=== PATIENT | female | born 1935 | race American Indian/Alaskan Native ===

== ENCOUNTER 2017-11-24 10:04 | Inpatient (IN) ==
--- NOTE | 2017-11-24 10:56 | Anesthesia Preoperative Report ---
Anesthesia Preoperative Record - Date and Time Date: 11/24/17 Preoperative Diagnosis: C scope Z80.0 Z86.010 Proposed Procedure: Colonoscopy NPO Since Date: 11/24/17 NPO Since Time: 00:00 Allergies/Adverse Reactions: Allergies Allergy/AdvReac Type Severity Reaction Status Date / Time metoclopramide [From Reglan] Allergy Verified 11/11/17 15:40 Penicillins Allergy Verified 08/10/12 11:52 Sulfa (Sulfonamide Allergy Verified 11/11/17 15:40 Antibiotics) metoclopramide HCl AdvReac Mild "IN A DAZE" Uncoded 08/11/12 07:26 - Vital Signs Vital Signs: Temperature 97.7 F 11/24/17 10:35 Pulse Rate 88 11/24/17 10:35 Respiratory Rate 12 11/24/17 10:35 Blood Pressure 144/68 H 11/24/17 10:35 Pulse Oximetry 97 11/24/17 10:35 Height and Weight: Height 4 ft 9 in Weight 44.7 kg Body Mass Index 21.3 - Medications Inpatient Medications: Current Medications Lactated Ringer's (Lactated Ringers) 1,000 mls @ 50 mls/hr IV .Q20H MELANIE Lidocaine HCl (Xylocaine-Mpf 1% Vial) 1 mg ID O ONE Stop: 11/24/17 12:26 Home Medications: Home Medications Medication Instructions Recorded Confirmed Type Naproxen sodium 220 mg tablet 220 mg PO Q12H 11/11/17 History aspirin 81 mg tablet,delayed 81 mg PO DAILY 11/11/17 History release cholecalciferol (vitamin D3) 400 400 unit PO DAILY 11/11/17 History unit capsule multivitamin,rv-[id number] 1 tab PO DAILY 11/11/17 History tablet niacin ER 500 mg capsule,extended 500 mg PO HS 11/11/17 History release nitrofurantoin macrocrystal 100 mg 100 mg PO HS 11/11/17 History capsule vitamin E (dl, acetate) 400 unit 400 unit PO DAILY 11/11/17 History capsule Is Patient on Beta Deisi?: No - Medical History Respiratory: DENIES: Asthma, Bronchitis, Chronic Obstructive Pulmonary Disease (COPD), Dyspnea, Orthopnea, Pulmonary Embolism, Pneumonia, Upper Respiratory Infection, Pulmonary Edema, Sleep Apnea, Tuberculosis, Other Cardiovascular: DENIES: Abnormal EKG, Angina, Arrhythmia, Congestive Heart Failure, Coronary Artery Disease, Heart Murmur, Hypertension, Hypotension, High Cholesterol, Myocardial Infarction, Rheumatic Fever, Valvular Heart Disease, Other Gastrointestional: DENIES: Obstructive Bowel, Hepatitis, Cirrhosis, Nausea or Vomiting Present, Gastroesophageal Reflux Disease, Gastrointestinal Bleeding, Hiatal Hernia, Ulcer , Morbid Obesity, Other Neuro/Musculoskeletal: Denies: HX.MS.OSAR, Back Problems, Cerebrovascular Accident, Depression, Headaches, Loss of Consciousness, Muscle Weakness, Neuromuscular Disorder, Paralysis, Paresthesia, Syncope, Seizures, Other Renal/Endocrine: DENIES: Diabetes Mellitus Type 1, Diabetes Mellitus Type 2, Renal Failure, Dialysis, Thyroid Disease, Weight Loss, Weight Gain, Other - Surgical History GI Surgery/Treatments: Reports: Colonoscopy, Other (DIVERTICULOSIS) Anesthesia Reactions: None Hx Family Anesthesia Reaction: No History of Motion Sickness: No - Social History Smoking Status: Never smoker Substance Use Type: does not use Alcohol Intake Frequency: does not drink - Pertinent Findings EKG: Sinus Rhythm, Sinus Bradycardia, First Degree AV Block - Physical Exam Respiratory Exam: Present: lungs clear, bilateral breath sounds equal Cardiovascular Exam: Present: regular rate and rhythm, no murmur - Airway Assessment Mallampati Score: II TMD: 3 Fingerbreadths Neck Extension: fair Overall Assessment: no airway concerns - ASA ASA Score: 2 - Plan Anesthesia: General TIVA - Discussion Discussion: Discussed risks/options/alternatives of anesthesia and questions answered. Patient consents. Nursing pain assessment noted. Present for Discussion: family member Attestation Statement: Prior to the delivery of any anesthetic medication, I examined the patient, developed the plan, obtained the patient's consent and discussed the risk and benefits of the procedure with the patient/guardian. - Additional Information Seen by Anesthesia: Yes
[2017-11-24 12:19] VITALS: BMI 20.9
[2017-11-24] MEDS ORDERED: LIDOCAINE 1% (10mg/ml) 2mL INJ PF SDV ID ONE (12:25)
[2017-11-24] MEDS ORDERED: LR 1,000 ML IV SCH (12:30)
--- NOTE | 2017-11-24 13:11 | Cardiology History & Physical ---
History of Present Illness Chief complaint: bradycardia HPI: Sakina is a 82 year old female with very little health history, a patient of Dr. Sharp, and was scheduled for elective, nonemergent colonoscopy today in the care of Dr. Martinez. She was found to be bradycardic on telemetry and EKG obtained showed sinus bradycardia with 1st degree AV block, HR 38. She was asymptomatic while laying in the pre-op area. I examined her in pre-op where she admits to at times needing to grab ahold of something to prevent passing out or loss of balance but denies syncope. She reports family history of heart problems, her mother's began in her 30s, her sister needing a PPM. Review of Systems - Constitutional Constitutional: Absent: chills, fatigue, fever(s) - EENMT Eyes: Absent: change in vision Balance: Absent: vertigo Mouth/Throat: Absent: sore throat - Cardiovascular Cardiovascular: Absent: chest pain, palpitations, syncope - Respiratory Respiratory: Absent: cough, dyspnea on exertion - Gastrointestinal Gastrointestinal: Absent: diarrhea, nausea, vomiting - Genitourinary Genitourinary: Absent: dysuria - Integumentary/Breasts Integumentary: Absent: rash - Neurological Neurological: Present: dizziness - Endocrine Endocrine: Absent: palpitations PFS Patient Stated Medical History Cerebrovascular Accident No Paralysis No Seizures No Syncope No Angina No Cardiac Arrhythmia No Congestive Heart Failure No Coronary Artery Disease No Heart Murmur No Hypertension No Hypotension No Myocardial Infarction No Rheumatic Fever No Valvular Heart Disease No Other Cardiology No Asthma No Bronchitis No Chronic Obstructive Pulmonary No Disease (COPD) Pneumonia No Pulmonary Edema No Pulmonary Embolism No Sleep Apnea No Tuberculosis No Other Respiratory No Diabetes Mellitus Type 1 No Diabetes Mellitus Type 2 No Cirrhosis No Gastroesophageal Reflux No Disease Gastrointestinal Bleeding No Hepatitis No Hiatal Hernia No Obstructive Bowel No Ulcer No Other GI No Osteoarthritis No Other Musculoskeletal No Depression No Clinic Medical History (Last Updated 11/11/17 @ 15:36 by JEFFREY Valle) No significant active problems (Acute Medical) Surgical History: 1. Colonoscopy on 07/21/2007. The patient did have a tubulovillous adenoma removed at a colonoscopy procedure at some time prior to 2011. 2. Colonoscopy on 08/11/[address] Guillaume at [facility] [place], [place]. Postoperative diagnoses were history of tubulovillous adenoma and mild diverticulosis of the left colon. Family History: Family History (Last Updated 11/11/17 @ 15:37 by Lulú Sanford Clayton) Father Heart attack Brother Heart attack Mother Heart attack Sister Breast cancer - Social History Smoking status: Never smoker Substance use type: does not use Alcohol intake frequency: does not drink Housing: apartment Household members: none Current occupational status: retired Current residence: Apartment/Private Home Medications Home Medications Medication Instructions Recorded Confirmed Type Naproxen sodium 220 mg tablet 220 mg PO Q12H PRN 11/11/17 11/24/17 History aspirin 81 mg tablet,delayed 81 mg PO DAILY 11/11/17 11/24/17 History release multivitamin,wk-uylf-[id number] 1 tab PO DAILY 11/11/17 11/24/17 History tablet niacin ER 500 mg capsule,extended 500 mg PO DAILY 11/11/17 11/24/17 History release vitamin E (dl, acetate) 400 unit 400 unit PO DAILY 11/11/17 11/24/17 History capsule Minocycline [Minocin] 100 mg PO BID #13 cap 11/27/17 Rx Allergies Allergy/AdvReac Type Severity Reaction Status Date / Time metoclopramide [From Reglan] Allergy Verified 11/24/17 13:10 Penicillins Allergy Verified 11/24/17 13:10 Sulfa (Sulfonamide Allergy Verified 11/24/17 13:10 Antibiotics) metoclopramide HCl AdvReac Mild "IN A DAZE" Uncoded 11/24/17 13:10 Exam Vital signs: Temperature 97.0 F 11/24/17 12:15 Pulse Rate 40 L 11/24/17 12:15 Respiratory Rate 14 11/24/17 12:15 Blood Pressure 166/61 H 11/24/17 12:15 Pulse Oximetry 95 11/24/17 12:15 - Constitutional no acute distress, thin, cooperative - Routine HEENT Exam Head: Present: normocephalic ENT: Present: mucous membranes dry - Routine Neck Exam Absent: JVD, carotid bruit - Routine Chest/Breast/Axilla Exam Chest wall: Absent: tenderness - Routine Respiratory Exam Absent: CTA bilaterally, rales, wheezes - Routine Cardiovascular Exam Present: bradycardia - Routine Abdominal Exam Present: soft, normoactive bowel sounds - Routine Extremities Exam Present: no edema - Routine Skin Exam Present: intact, dry, warm - Routine Neurological Exam Present: alert, oriented X3 - Routine Psychiatric Exam Present: normal affect, normal thought process Results 11/27/17 05:08 11/27/17 05:08 Cardiac Enzymes 11/24/17 Range/Units 11:47 AST 26 (14-36) U/L CBC 11/24/17 Range/Units 11:47 WBC 5.3 (4.5-11.0) T/MM3 RBC 4.33 (4.00-5.20) M/MM3 Hgb 13.2 (12-16) GM/DL Hct 39.1 (36-46) % Plt Count 313 (130-400) T/MM3 Neut # (Auto) 3.5 (1.8-7.7) T/MM3 Lymph # (Auto) 1.1 (1-4.8) T/MM3 [place] # (Auto) 0.5 (0-0.8) T/MM3 Eos # (Auto) 0.1 (0-0.5) T/MM3 Baso # (Auto) 0.0 (0-0.2) T/MM3 Comprehensive Metabolic Panel 11/24/17 Range/Units 11:47 Sodium 144 (134-144) MEQ/L Potassium 4.0 (3.6-5) MEQ/L Chloride 107 (98-107) MEQ/L Carbon Dioxide 24 (22-30) MEQ/L BUN 15.0 (7-17) MG/DL Creatinine 0.9 (0.7-1.2) MG/DL Glucose 91 (65-110) MG/DL Calcium 9.1 (8.4-10.2) MG/DL AST 26 (14-36) U/L ALT 31 (9-52) U/L Alkaline Phosphatase 78 (38-126) U/L Total Protein 6.7 (6.3-8.2) G/DL Albumin 4.2 (3.5-5.0) G/DL Intake and Output 11/23/17 11/24/17 11/24/17 22:59 06:59 14:59 Other: Weight 97 lb 0.054 oz Patient Weight 11/25/17 06:59 Weight 97 lb 0.054 oz - Imaging and Cardiology Imaging & Cardiology Narrative: Date of Exam: 11/24/17 Type of Exam(s): US echo doppler complete DATE OF PROCEDURE November 24, 2017 This is a two-dimensional echo with spectral Doppler, color-flow and M-mode. It was obtained in a patient with bradycardia. Left atrium is dilated. Left ventricular end-diastolic dimension is normal. Left ventricle wall thickness is increased. LV systolic function is normal with ejection fraction of about 62%. Right atrium is normal. Right ventricle is normal. Aortic root dimension is normal. Mitral valve is morphologically normal with moderate mitral regurgitation. Aortic valve is a trileaflet structure with no stenosis and trace of aortic insufficiency. Tricuspid valve shows [id number]-[id number] tricuspid regurgitation with moderate pulmonary hypertension with estimated pulmonary artery systolic pressure of 45. Pulmonary valve shows no pulmonary insufficiency. There is no pericardial effusion. IMPRESSION 1. Left atrial dilation. 2. Left ventricular hypertrophy. 3. Normal LV systolic function with ejection fraction of 62%. 4. Moderate mitral regurgitation. 5. Wtlf-dw-tpzsarve tricuspid regurgitation with moderate pulmonary hypertension with estimated pulmonary artery systolic pressure of 45. 6. Trace of aortic insufficiency. 11/25/17 10:18 11/25/17 10:19 Date of Exam: 11/24/17 Ordering Provider: Karyna Correa APRN Type of Exam(s): XR chest 1V Reason for Exam(s): bradycardia Indication: bradycardia PROCEDURE: XR chest 1V: Encounter: Initial Comparison: None Findings: Lungs are clear. No pleural effusion or pneumothorax. Heart size and mediastinal contours are within normal limits. Pulmonary vascularity is normal. Impression: No acute cardiopulmonary disease. EKG interpretations - Dysrhythmias Sinus rhythms and dysrhythmias: sinus bradycardia (< 50 bpm) - Blocks, axis, hypertrophy, ST abn AV and intraventricular conduction: 2 to 1 AV block Hospital Course This is a general summary of the patient's hospital course. For more details refer to the complete medical record. Time spent with patient: 25 - 35 minutes Resuscitation Status: Full Code Assessment and Plan - Attestation Attestation Narrative: 12/03/17 12:46 Recommendation After examining the patient I agree with the above assessment. I am involved in the formulation of the patient's plan of care. - Assessment and Plan (1) Sinus bradycardia Status: Acute Denies syncope, reports some balance disturbance requiring her to grab ahold of furniture - check TSh and Mag - Monitor telemetry overnight - 2D echo for eval of possible valve disease, LV dysfunction - Possible PPM tomorrow - Assessment and Plan Denies syncope, reports some balance disturbance requiring her to grab ahold of furniture - check TSh and Mag - Monitor telemetry overnight - 2D echo for eval of possible valve disease, LV dysfunction - Possible PPM tomorrow
--- NOTE | 2017-11-24 13:50 | XRay Report ---
Indication: bradycardia PROCEDURE: XR chest 1V: Encounter: Initial Comparison: None Findings: Lungs are clear. No pleural effusion or pneumothorax. Heart size and mediastinal contours are within normal limits. Pulmonary vascularity is normal. Impression: No acute cardiopulmonary disease. .
[2017-11-24] MEDS ORDERED: NAPROXEN 220 MG TABLET PO PRN (17:47)
[2017-11-24] MEDS: ENOXAPARIN 40 MG/0.4 ML INJECTION SQ SCH (19:32)
[2017-11-24] MEDS: SALINE FLUSH 10ml SYRINGE IV PRN (21:34)
[2017-11-24] MEDS: NIACIN ER 500 MG TABLET PO SCH (21:34)
--- NOTE | 2017-11-25 08:24 | Echocardiogram ---
DATE OF PROCEDURE November 24, 2017 This is a two-dimensional echo with spectral Doppler, color-flow and M-mode. It was obtained in a patient with bradycardia. Left atrium is dilated. Left ventricular end-diastolic dimension is normal. Left ventricle wall thickness is increased. LV systolic function is normal with ejection fraction of about 62%. Right atrium is normal. Right ventricle is normal. Aortic root dimension is normal. Mitral valve is morphologically normal with moderate mitral regurgitation. Aortic valve is a trileaflet structure with no stenosis and trace of aortic insufficiency. Tricuspid valve shows dswe-uh-[id number] tricuspid regurgitation with moderate pulmonary hypertension with estimated pulmonary artery systolic pressure of 45. Pulmonary valve shows no pulmonary insufficiency. There is no pericardial effusion. IMPRESSION 1. Left atrial dilation. 2. Left ventricular hypertrophy. 3. Normal LV systolic function with ejection fraction of 62%. 4. Moderate mitral regurgitation. 5. Odjn-pp-jklctnss tricuspid regurgitation with moderate pulmonary hypertension with estimated pulmonary artery systolic pressure of 45. 6. Trace of aortic insufficiency. MTDD
[2017-11-25] MEDS ORDERED: MULTIVIT TX WITH IRON MINERALS PO SCH (09:00)
[2017-11-25] MEDS ORDERED: NIACIN 500 MG PO SCH (09:00)
[2017-11-25] MEDS: ENOXAPARIN 40 MG/0.4 ML INJECTION SQ SCH (09:57)
[2017-11-25] MEDS: ASPIRIN *EC* 81 MG TABLET PO SCH (09:57)
[2017-11-25] MEDS: MULTI-VITAMIN + MINERAL TABLET PO SCH (09:58)
[2017-11-25] MEDS: VITAMIN E 400 UNIT CAPSULE PO SCH (09:58)
--- NOTE | 2017-11-25 18:20 | Cardiology Progress Note ---
<Karyna Correa M - Last Filed: 11/25/17 18:17> Exam Vital signs: Temperature 96.9 F 11/25/17 16:00 Pulse Rate 65 11/25/17 16:00 Respiratory Rate 14 11/25/17 16:00 Blood Pressure 135/61 11/25/17 16:00 Pulse Oximetry 96 11/25/17 16:00 Inpatient Medications: Generic Name Dose Route Start Last Admin Trade Name Scottieq PRN Reason Stop Dose Admin Aspirin 81 mg 11/25/17 09:00 11/25/17 09:57 Ecotrin PO 81 mg DAILY MELANIE Administration Enoxaparin Sodium 40 mg 11/24/17 18:00 11/25/17 09:57 Lovenox SQ 40 mg DAILY MELANIE Administration Multivitamins/Minerals 1 tab 11/25/17 09:00 11/25/17 09:58 Therapeutic - M PO 1 tab DAILY MELANIE Administration Naproxen 220 mg 11/24/17 17:47 Aleve PO Q12H PRN Pain Niacin 500 mg 11/24/17 21:00 11/24/17 21:34 Niaspan PO 500 mg HS [facility] Administration Sodium Chloride 10 - 80 ml 11/24/17 11:36 11/24/17 21:34 Iv Flush IV 10 ml PRN PRN Administration Flushing Vitamin E 400 unit 11/25/17 09:00 11/25/17 09:58 Vitamin E PO 400 unit DAILY MELANIE Administration Discontinued Medications Generic Name Dose Route Start Last Admin Trade Name Laquita PRN Reason Stop Dose Admin Lactated Ringer's 1,000 mls @ 50 mls/hr 11/24/17 12:30 11/24/17 23:15 Lactated Ringers IV Not Given .Q20H [facility] Lidocaine HCl 1 mg 11/24/17 12:25 11/24/17 23:14 Xylocaine-Mpf 1% Vial ID 11/24/17 12:26 Not Given O ONE Non-Formulary Medication 1 tab 11/25/17 09:00 Multivit,Tx With Iron,Minerals [Thera-M] PO DAILY [facility] Non-Formulary Medication 500 mg 11/25/17 09:00 Niacin Er PO DAILY MELANIE - Constitutional no acute distress, well nourished, thin, cooperative - Routine HEENT Exam Head: Present: normocephalic ENT: Present: mucous membranes moist - Routine Neck Exam Absent: JVD, carotid bruit - Routine Chest/Breast/Axilla Exam Chest wall: Absent: tenderness - Routine Respiratory Exam Present: CTA bilaterally. Absent: rales, wheezes - Routine Cardiovascular Exam Present: no murmur, bradycardia - Routine Abdominal Exam Present: soft, normoactive bowel sounds - Routine Extremities Exam Present: no edema - Routine Skin Exam Present: intact, dry, warm - Routine Neurological Exam Present: alert, oriented X3 - Routine Psychiatric Exam Present: normal affect - Additional findings Additional findings: Aspirin (Ecotrin) 81 mg PO DAILY [facility] Last Admin: 11/25/17 09:57 Dose: 81 mg Enoxaparin Sodium (Lovenox) 40 mg SQ DAILY [facility] Last Admin: 11/25/17 09:57 Dose: 40 mg Multivitamins/Minerals (Therapeutic - M) 1 tab PO DAILY [facility] Last Admin: 11/25/17 09:58 Dose: 1 tab Naproxen (Aleve) 220 mg PO Q12H PRN PRN Reason: Pain Niacin (Niaspan) 500 mg PO HS [facility] Last Admin: 11/24/17 21:34 Dose: 500 mg Sodium Chloride (Iv Flush) 10 - 80 ml IV PRN PRN PRN Reason: Flushing Last Admin: 11/24/17 21:34 Dose: 10 ml Vitamin E (Vitamin E) 400 unit PO DAILY [facility] Last Admin: 11/25/17 09:58 Dose: 400 unit Results 11/25/17 05:11 11/25/17 05:11 CBC 11/25/17 Range/Units 05:11 WBC 4.6 (4.5-11.0) T/MM3 RBC 4.08 (4.00-5.20) M/MM3 Hgb 12.3 (12-16) GM/DL Hct 37.2 (36-46) % Plt Count 296 (130-400) T/MM3 Comprehensive Metabolic Panel 11/25/17 Range/Units 05:11 Sodium 141 (134-144) MEQ/L Potassium 3.8 (3.6-5) MEQ/L Chloride 108 H (98-107) MEQ/L Carbon Dioxide 24 (22-30) MEQ/L BUN 14.0 (7-17) MG/DL Creatinine 0.8 (0.7-1.2) MG/DL Glucose 70 (65-110) MG/DL Calcium 8.6 (8.4-10.2) MG/DL Intake and Output 11/25/17 11/25/17 11/25/17 06:59 14:59 22:59 Intake Total 240 / 240 Balance 240 / 240 Intake: Oral 240 / 240 Other: Weight 96 lb 8.999 oz Patient Weight 11/26/17 06:59 Weight 96 lb 8.999 oz - EKG Interpretation EKG shows: bradycardia Assessment and Plan - Assessment and Plan (1) Sinus bradycardia Status: Acute - Assessment and Plan 11/24/17 Bradycardia: Denies syncope, reports some balance disturbance requiring her to grab [employer] - check TSh and Mag - Monitor telemetry overnight - 2D echo for eval of possible valve disease, LV dysfunction - Possible PPM tomorrow 11/25/17 2:1 AV Block on Telemetry - Shared findings with the patient and her sister, discussed the risks and benefits of PPM insertion; she agrees to think about PPM placement. - NPO after midnight - Consent for dual chamber PPM around [id number] tomorrow Hospital Course Summary Disclaimer: The visit summary below is not to be considered part of the above Progress Note. <Lowell Adams - Last Filed: 12/03/17 12:47> Exam Vital signs: Temperature 97 F 11/27/17 15:30 Pulse Rate 65 11/27/17 15:30 Respiratory Rate 14 11/27/17 15:30 Blood Pressure 133/72 11/27/17 15:30 Pulse Oximetry 97 11/27/17 08:00 Inpatient Medications: Discontinued Medications Generic Name Dose Route Start Last Admin Trade Name Scottieq PRN Reason Stop Dose Admin Acetaminophen 650 mg 11/26/17 14:32 11/27/17 13:28 Tylenol PO 650 mg Q4H MELANIE Administration Acetaminophen/Codeine Phosphate 1 - 2 tab 11/26/17 14:32 Tylenol With Codeine #3 (300/30) PO Q4H PRN Pain Al Hydroxide/Mg Hydroxide 30 ml 11/26/17 14:32 Maalox Plus PO Q3H PRN Indigestion Aspirin 81 mg 11/25/17 09:00 11/27/17 09:43 Ecotrin PO 81 mg DAILY MELANIE Administration Enoxaparin Sodium 40 mg 11/24/17 18:00 11/27/17 09:42 Lovenox SQ 40 mg DAILY MELANIE Administration Lactated Ringer's 1,000 mls @ 50 mls/hr 11/24/17 12:30 11/24/17 23:15 Lactated Ringers IV Not Given .Q20H MELANIE Vancomycin HCl 750 mg/ Sodium 250 mls @ 250 mls/hr 11/26/17 10:45 11/26/17 14 :35 Chloride IV 11/26/17 11:44 Not Given PREOP ONE Vancomycin HCl 750 mg/ Sodium 250 mls @ 250 mls/hr 11/27/17 02:00 11/27/17 04 :03 Chloride IV 11/27/17 02:59 Infused O ONE Infusion Lidocaine HCl 1 mg 11/24/17 12:25 11/24/17 23:14 Xylocaine-Mpf 1% Vial ID 11/24/17 12:26 Not Given O ONE Minocycline HCl 100 mg 11/27/17 09:00 11/27/17 09:43 Minocin PO 12/04/17 08:59 100 mg BID MELANIE Administration Multivitamins/Minerals 1 tab 11/25/17 09:00 11/27/17 09:43 Therapeutic - M PO 1 tab DAILY MELANIE Administration Naproxen 220 mg 11/24/17 17:47 11/25/17 21:13 Aleve PO 220 mg Q12H PRN Administration Pain Niacin 500 mg 11/24/17 21:00 11/26/17 21:08 Niaspan PO 500 mg HS MELANIE Administration Non-Formulary Medication 1 tab 11/25/17 09:00 Multivit,Tx With Iron,Minerals [Thera-M] PO DAILY MELANIE Non-Formulary Medication 500 mg 11/25/17 09:00 Niacin Er PO DAILY MELANIE Sodium Chloride 10 - 80 ml 11/24/17 11:36 11/27/17 02:39 Iv Flush IV 10 ml PRN PRN Administration Flushing Sodium Chloride 10 ml 11/26/17 14:32 Iv Flush IV PRN PRN Flushing Vitamin E 400 unit 11/25/17 09:00 11/27/17 09:42 Vitamin E PO 400 unit DAILY MELANIE Administration Results 11/27/17 05:08 11/27/17 05:08 Assessment and Plan - Assessment and Plan (1) Sinus bradycardia Status: Acute - Attestation Attestation Narrative: 12/03/17 12:47 Recommendation After examining the patient I agree with the above assessment. I am involved in the formulation of the patient's plan of care. Hospital Course Summary Disclaimer: The visit summary below is not to be considered part of the above Progress Note.
[2017-11-25] MEDS: SALINE FLUSH 10ml SYRINGE IV PRN (21:13)
[2017-11-25] MEDS: NIACIN ER 500 MG TABLET PO SCH (21:13)
[2017-11-26] MEDS: SALINE FLUSH 10ml SYRINGE IV PRN (06:11)
[2017-11-26] MEDS ORDERED: BACITRACIN 50,000 UNIT INJECTION ONE (12:34)
[2017-11-26] MEDS ORDERED: FentaNYL 100 MCG/2 ML INJECTION ONE (12:34)
[2017-11-26] MEDS ORDERED: MIDAZOLAM 2mg/2ml INJECTION ONE (12:34)
[2017-11-26] MEDS ORDERED: LIDOCAINE 1% (10mg/ml) 30ml SDV INJ ONE (12:34)
[2017-11-26] MEDS ORDERED: APAP/CODEINE 300 MG/30 MG TABLET PO PRN (14:32)
[2017-11-26] MEDS ORDERED: MAG-AL + SIM ORAL LIQUID 30ml PO PRN (14:32)
[2017-11-26] MEDS ORDERED: SALINE FLUSH 10ml SYRINGE IV PRN (14:32)
[2017-11-26] MEDS: VITAMIN E 400 UNIT CAPSULE PO SCH (15:19)
[2017-11-26] MEDS: ACETAMINOPHEN 325 MG TABLET PO SCH ×3 (15:19→22:49)
[2017-11-26] MEDS: ASPIRIN *EC* 81 MG TABLET PO SCH (15:20)
[2017-11-26] MEDS: MULTI-VITAMIN + MINERAL TABLET PO SCH (15:20)
[2017-11-26] MEDS: ENOXAPARIN 40 MG/0.4 ML INJECTION SQ SCH (15:20)
--- NOTE | 2017-11-26 17:06 | XRay Report ---
Indication: ppm PROCEDURE: XR chest 1V: Encounter: Initial Comparison: November 24, 2017 Findings: New left-sided dual-lead cardiac pacemaker with right atrial and right ventricular leads. No evidence of lead fracture or dislodgment. There appears to be a small left apical pneumothorax on the order of 5% or less. There is associated subcutaneous emphysema in the left neck and left chest wall. The lungs are otherwise clear. No pleural effusion. Heart size and mediastinal contours are stable. Pulmonary vascularity is normal. Impression: Small left apical pneumothorax following pacemaker placement. This result was discussed with the ordering physician Dr. Adams at 1700 on November 26, 2017. .
[2017-11-26] MEDS: NIACIN ER 500 MG TABLET PO SCH (21:08)
[2017-11-27] MEDS: SALINE FLUSH 10ml SYRINGE IV PRN ×2 (00:23→02:39)
[2017-11-27] MEDS: ACETAMINOPHEN 325 MG TABLET PO SCH ×3 (02:39→13:28)
--- NOTE | 2017-11-27 08:26 | XRay Report ---
INDICATION: ppm PROCEDURE: CHEST 2-VIEWS UPRIGHT (PA & LAT) Encounter: Initial COMPARISON: November 26, 2017 FINDINGS: Increasing subcutaneous emphysema in the left chest wall and neck. This is obscuring the pleural margin of where I believe the small left apical pneumothorax to still be present. This has not enlarged since the prior study. The lungs are otherwise clear with mild hyperinflation. Heart size and mediastinal contours are stable. Left pacemaker right atrial and right ventricular leads are stable in position allowing for differences in location. Pulmonary vascularity is normal. Impression: Grossly stable small left apical pneumothorax with increasing subcutaneous emphysema. .
[2017-11-27 08:33] VITALS: O2SAT 97
[2017-11-27] MEDS ORDERED: MINOCYCLINE 100 MG CAPSULE PO SCH (09:00)
[2017-11-27] MEDS: VITAMIN E 400 UNIT CAPSULE PO SCH (09:42)
[2017-11-27] MEDS: ENOXAPARIN 40 MG/0.4 ML INJECTION SQ SCH (09:42)
[2017-11-27] MEDS: MULTI-VITAMIN + MINERAL TABLET PO SCH (09:43)
[2017-11-27] MEDS: ASPIRIN *EC* 81 MG TABLET PO SCH (09:43)
[2017-11-27 15:31] VITALS: BP 133/72; PULSE 65; RESP 14; TEMP 97
--- NOTE | 2017-11-27 17:52 | Discharge Summary ---
Discharge Information Date of admission: 11/25/17 19:58 Anticipated date of discharge: 11/27/17 Attending Physician: Lowell Adams MD Primary care physician: Alem Sharp MD - Discharge Diagnosis (1) Sinus bradycardia Status: Acute 2:1 AV block bradycardia - Procedures Procedures: Meditronic dual chamber PPM insertion - Laboratory Labs: 11/27/17 05:08 11/27/17 05:08 History of Present Illness HPI: Sakina is a 82 year old female with very little health history, a patient of Dr. Sharp, and was scheduled for elective, nonemergent colonoscopy today in the care of Dr. Martinez. She was found to be bradycardic on telemetry and EKG obtained showed sinus bradycardia with 1st degree AV block, HR 38. She was asymptomatic while laying in the pre-op area. I examined her in pre-op where she admits to at times needing to grab ahold of something to prevent passing out or loss of balance but denies syncope. She reports family history of heart problems, her mother's began in her 30s, her sister needing a PPM. Hospital Course This is a general summary of the patient's hospital course. For more details refer to the complete medical record. Hospital course: 11/24/17 Bradycardia: Denies syncope, reports some balance disturbance requiring her to grab ahold of furniture - check TSh and Mag - Monitor telemetry overnight - 2D echo for eval of possible valve disease, LV dysfunction - Possible PPM tomorrow 11/25/17 2:1 AV Block on Telemetry - Shared findings with the patient and her sister, discussed the risks and benefits of PPM insertion; she agrees to think about PPM placement. - NPO after midnight - Consent for dual chamber PPM around [id number] tomorrow Exam Vital signs: Temperature 97 F 11/27/17 15:30 Pulse Rate 65 11/27/17 15:30 Respiratory Rate 14 11/27/17 15:30 Blood Pressure 133/72 11/27/17 15:30 Pulse Oximetry 97 11/27/17 08:00 Results 11/27/17 05:08 11/27/17 05:08 CBC 11/27/17 Range/Units 05:08 WBC 5.5 (4.5-11.0) T/MM3 RBC 3.79 L (4.00-5.20) M/MM3 Hgb 11.4 L (12-16) GM/DL Hct 34.2 L (36-46) % Plt Count 249 (130-400) T/MM3 Neut # (Auto) 3.8 (1.8-7.7) T/MM3 Lymph # (Auto) 1.0 (1-4.8) T/MM3 [place] # (Auto) 0.6 (0-0.8) T/MM3 Eos # (Auto) 0.1 (0-0.5) T/MM3 Baso # (Auto) 0.0 (0-0.2) T/MM3 Comprehensive Metabolic Panel 11/27/17 Range/Units 05:08 Sodium 137 (134-144) MEQ/L Potassium 4.0 (3.6-5) MEQ/L Chloride 107 (98-107) MEQ/L Carbon Dioxide 23 (22-30) MEQ/L BUN 12.0 (7-17) MG/DL Creatinine 0.7 (0.7-1.2) MG/DL Glucose 86 (65-110) MG/DL Calcium 8.0 L (8.4-10.2) MG/DL Intake and Output 11/27/17 11/27/17 11/27/17 06:59 14:59 22:59 Intake Total 650 / 650 118 / 118 Output Total 100 / 100 Balance 650 / 650 118 / 118 -100 / -100 Intake: IV 250 / 250 Vancomycin 750 mg In NS 250ml 250 / 250 250 ml @ 250 mls/hr IV O ONE Rx #:[id number] Oral 400 / 400 118 / 118 Output: Urine 100 / 100 Other: Urine Appearance Cloudy Clear Urine Color Yellow Yellow Urine Odor Normal Stool Characteristics Normal for Patient Stool Color Brown Stool Consistency Soft Formed Size of Bowel Movement Small # Voids 1 1 # Bowel Movements 1 Weight 100 lb 15.547 oz Patient Weight 11/28/17 06:59 Weight 100 lb 15.547 oz - Imaging and Cardiology Imaging & Cardiology Narrative: Date of Exam: 11/24/17 Type of Exam(s): US echo doppler complete DATE OF PROCEDURE November 24, 2017 This is a two-dimensional echo with spectral Doppler, color-flow and M-mode. It was obtained in a patient with bradycardia. Left atrium is dilated. Left ventricular end-diastolic dimension is normal. Left ventricle wall thickness is increased. LV systolic function is normal with ejection fraction of about 62%. Right atrium is normal. Right ventricle is normal. Aortic root dimension is normal. Mitral valve is morphologically normal with moderate mitral regurgitation. Aortic valve is a trileaflet structure with no stenosis and trace of aortic insufficiency. Tricuspid valve shows [id number] tricuspid regurgitation with moderate pulmonary hypertension with estimated pulmonary artery systolic pressure of 45. Pulmonary valve shows no pulmonary insufficiency. There is no pericardial effusion. IMPRESSION 1. Left atrial dilation. 2. Left ventricular hypertrophy. 3. Normal LV systolic function with ejection fraction of 62%. 4. Moderate mitral regurgitation. 5. [id number] tricuspid regurgitation with moderate pulmonary hypertension with estimated pulmonary artery systolic pressure of 45. 6. Trace of aortic insufficiency. 11/27/17 17:50 11/27/17 17:50 Date of Exam: 11/26/17 Ordering Provider: Lowell Adams MD Type of Exam(s): XR chest 1V Reason for Exam(s): ppm Indication: ppm PROCEDURE: XR chest 1V: Encounter: Initial Comparison: November 24, 2017 Findings: New left-sided dual-lead cardiac pacemaker with right atrial and right ventricular leads. No evidence of lead fracture or dislodgment. There appears to be a small left apical pneumothorax on the order of 5% or less. There is associated subcutaneous emphysema in the left neck and left chest wall. The lungs are otherwise clear. No pleural effusion. Heart size and mediastinal contours are stable. Pulmonary vascularity is normal. Impression: Small left apical pneumothorax following pacemaker placement. This result was discussed with the ordering physician Dr. Adams at 1700 on November 26, 2017. 11/27/17 17:51 Date of Exam: 11/27/17 Ordering Provider: Lowell Adams MD Type of Exam(s): XR chest 2V Reason for Exam(s): ppm INDICATION: ppm PROCEDURE: CHEST 2-VIEWS UPRIGHT (PA & LAT) Encounter: Initial COMPARISON: November 26, 2017 FINDINGS: Increasing subcutaneous emphysema in the left chest wall and neck. This is obscuring the pleural margin of where I believe the small left apical pneumothorax to still be present. This has not enlarged since the prior study. The lungs are otherwise clear with mild hyperinflation. Heart size and mediastinal contours are stable. Left pacemaker right atrial and right ventricular leads are stable in position allowing for differences in location. Pulmonary vascularity is normal. Impression: Grossly stable small left apical pneumothorax with increasing subcutaneous emphysema. Discharge Plan - Med Rec/Dispo Referrals/Follow Up: Lowell Adams MD [Physician] - 12/03/17 11:30 am (incision check) Darryl Instructions: [facility] [place] Pacemaker Implantation Prescriptions: New Minocycline [Minocin] 100 mg PO BID #13 cap Continue Naproxen sodium 220 mg tablet 220 mg PO Q12H PRN PRN Reason: Pain vitamin E (dl, acetate) 400 unit capsule 400 unit PO DAILY multivitamin,mu-jgku-uaeiagzm tablet 1 tab PO DAILY aspirin 81 mg tablet,delayed release 81 mg PO DAILY No Action niacin ER 500 mg capsule,extended release 500 mg PO DAILY - Disposition 01 Discharged Home, Self-Care - Dismissal Complete Discharge Instructions are:: Complete
--- NOTE | 2017-12-02 09:25 | Progress Note ---
HISTORY See 11/11/2017 general surgery history and physical examination report for background. We did have this patient scheduled to undergo colonoscopy on 2017 at [facility]. The patient did complete her bowel prep at home and come in on the morning of 11/24/2017 to undergo colonoscopy. The patient was connected to a cardiac monitor technician and was found to have a pulse of 38. The patient did have an EKG performed and was found to have a 2:1 AV heart block with associated bradycardia. It was thought at first that the patient was asymptomatic. Dr. Admas was consulted. When the patient was seen by Karyna Correa APRN, it was found out that the patient actually has been symptomatic from this bradycardia. The colonoscopy procedure was cancelled. The patient did undergo a cardiac evaluation by Dr. Adams which included an echocardiogram. The patient had normal left ventricular systolic function with an ejection fraction of 62%. The patient did have moderate mitral regurgitation. The patient did undergo implantation of a Medtronic dual- chamber permanent cardiac pacemaker on 11/26/[address] Adams at [facility]. This was performed for treatment of 2:1 AV heart block with symptomatic bradycardia. The patient was then discharged from [facility] on 11/27/2017. PLAN We will try to get the patient back in for a followup office visit to update her history and physical examination report and reschedule for the colonoscopy procedure. HELLEN
== END 2017-11-27 17:30 | disposition home or self-care (01) | DRG 244 ==
LOC: MED 10:04 → SUR 10:04 → NMC.PERIOP 10:10
PROVIDERS: ADMIT Internal Medicine Cardiovascular Disease; ATTEND Internal Medicine Cardiovascular Disease